=== PATIENT | male | born 1995 | race African-American/Black ===

== ENCOUNTER 2024-01-24 22:49 | Inpatient (IN) | payer OTHER, SELFPAY ==
[2024-01-24 17:39] VITALS: BP 141/93
--- NOTE | 2024-01-24 18:07 | EDRN ---
Gaston Rodriguez [employer] in to see pt.
--- NOTE | 2024-01-24 18:26 | EDRN ---
Gaston Guo PA in room w/pt at this time.
--- NOTE | 2024-01-24 18:32 | ED.GENMED ---
History of Present Illness
General
Chief Complaint: Cold/Flu/URI Symptoms
Time Seen by Provider: 01/24/24 17:48
Travel History
Have you had any contact with someone who has COVID-19?: No
Do you have any symptoms of coronavirus? Fever > 100 degrees, chills, cough, shortness of breath, sore throat, loss of taste or smell, muscle aches, or headache?: No
History of Present Illness
History of Present Illness:
28-year-old otherwise healthy male presents the emergency department for evaluation of sore throat and fever for the past 5 days. Has had progressive worsening throat pain and dysphagia. Voice became muffled yesterday. Having a hard time
swallowing, is able to tolerate his secretions currently. No chest pain or coughing. No nausea or vomiting.
Review of Systems
Review of Systems
Allergies reviewed?: Yes
All Other Systems: ROS reviewed and negative except as documented in HPI and ROS
Phy Exam
Physical Exam
Physical Exam:
GEN: Well appearing, NAD, WDWN
HEENT: Oral mucosa moist, 4+ tonsillar hypertrophy with erythema, no exudate, uvula midline however displaced anteriorly, unable to visualize posterior oropharynx. Positive bilateral cervical adenopathy
Cardiac: Regular rate
Lung: No respiratory distress, no tachypnea
MSK: No gross deformity or injuries
Skin: Good color, no pallor or jaundice, no rashes
Neuro: AO x3, moves all extremities freely
Psych: Calm, cooperative
Course
Orders/Labs/Results
Orders:
Orders
01/24/24 18:29
Dexamethasone Sod Phosphate [Decadron] 6 mg IV NOW STA
Ketorolac [Toradol] 15 mg IV NOW STA
01/24/24 18:57
Basic Metabolic Panel Urgent
Complete Blood Count/With Diff Urgent
Monotest Urgent
Rapid Strep Group A Urgent
EDIS Source: Throat/Pharynx
Specimen Description:
Date Specimen was Collected: 01/24/24
Time Specimen was Collected: 18:45
01/24/24 19:27
CT Neck With Iv Contrast Urgent
Comment:
Reason For Exam: throat swelling suspected parapharyngeal abscess
01/24/24 21:47
Ampicillin/Sulbactam 3 G [Unasyn] 3 gm 0.9% Sodium Chloride 100 ml [Nss] 100 ml IV NOW
01/24/24 22:27
Admit/Transfer Patient As Directed
Co-Sign Provider:
Level of Care: Inpatient admission
Assign to:: Medical/Surgical
Physician / Group: dr Velasquez
Diagnosis: biltateral tonsillar abscesses
Reason for Hospitalization: steroids, antibiotics, pain control
Expected length of stay greater than two midnights?: Yes
ELOS- Estimated Length of Stay in days: 3
I certify the patient meets the requirements for IP care: Yes
01/24/24 22:30
Code Status As Directed
Resuscitation Status: Full Code
01/24/24 22:45
HYDROmorphone [Dilaudid] 0.5 mg IV NOW STA
Abnormal Lab Results
01/24/24
18:57
WBC 12.0 H 10^3/uL
(4.8-10.8)
Absolute Neuts (auto) 8.5 H 10^3/uL
(1.4-6.5)
Absolute Monos (auto) 1.9 H 10^3/uL
(0.1-0.6)
Lymphocytes % 12.1 L %
(20.5-51.1)
Monocytes % 16.1 H %
(1.7-9.3)
Glucose 100 H mg/dl
(70-99)
01/24/24 18:57
01/24/24 18:57
Vital Signs
Initial and Last Documented VS:
Initial Vital Signs
Temp Pulse Resp BP Pulse Ox
99.7 F 100 18 141/93 96
01/24/24 17:39 01/24/24 17:39 01/24/24 17:39 01/24/24 17:39 01/24/24 17:39
Last Documented Vital Signs
Temp Pulse Resp BP Pulse Ox
99.5 F 80 16 119/73 98
01/24/24 22:53 01/24/24 22:53 01/24/24 22:53 01/24/24 22:53 01/24/24 22:53
MDM/Problems Addressed
MDM/Problems Addressed:
Due to the persistence of her voice despite improved symptoms of Toradol a CT was obtained showing bilateral tonsillar abscesses. Case was discussed with ENT, will admit to the ENT service on IV antibiotics and steroids
*Critical Care Note
Total Time (30-74mins, 75-104mins- exclusive of procedures): Not Applicable
ED Attending Note
-
Portions of this chart may have been created with voice recognition software.� Occasional wrong word or��sound alike� substitutions may have occurred due to the inherent limitations of voice recognition software.
Discharge Plan
Departure
Patient Disposition: Admit
Date of Disposition: 01/24/24
Time of Disposition: 21:42
Admit to: Med/Surg
Presentation/result/management discussed w/ accepting MD/DO: Asha
Discharge Problem:
Acute tonsillitis, Tonsillar abscess
Interventions
Interventions:
*Risk Screen - Suicide Last Done: 01/24/24 19:37
*General Assessment Last Done: 01/24/24 17:39
*Neglect/Abuse Screening Last Done: 01/24/24 19:37
*ED COVID-19 Vaccine History Last Done: 01/24/24 17:39
ED- Pulmonary Assessment Last Done: 01/24/24 19:37
[2024-01-24] MEDS: DECADRON 6 MG IV (19:02)
[2024-01-24 19:03] LABS: % Basophils 0.3 % (0-2); % Eosinophils 0.5 % (0-6); % Immature Granulocytes 0.3 % (0-0.5); % Lymphocytes 12.1 % (20.5-51.1); % Monocytes 16.1 % (1.7-9.3); % Neutrophils 70.7 % (42.2-75.2); Absolute Eosinophils 0.1 10^3/uL (0-0.7); Absolute Lymphocytes 1.5 10^3/uL (1.2-3.4); Absolute Monocytes 1.9 10^3/uL (0.1-0.6); Absolute Neutrophils 8.5 10^3/uL (1.4-6.5); Hematocrit 45.5 % (39.0-52.0); Hemoglobin 15.6 g/dL (13.0-18.0); Mean Corp Hgb Conc. 34.3 g/dL (33.0-37.0); Mean Corpuscular Volume 84.6 fL (80.0-94.0); Mean Platelet Volume 9.7 fL (7.4-10.4); Nucleated Red Blood Cells % 0 % (-); Platelet Count 246 10^3/uL (130-400); Red Blood Cell Count 5.38 10^6/uL (4.70-6.10); Red Cell Dist. Width 12.4 % (11.5-14.5)
[2024-01-24] MEDS: TORADOL 15 MG IV (19:03)
[2024-01-24 19:20] LABS: Monotest Negative (Negative)
[2024-01-24 19:37] VITALS: BP 133/84
[2024-01-24 19:37] LABS: Blood Urea Nitrogen 15 mg/dl (9-20); Calcium 9.8 mg/dl (8.4-10.2); Carbon Dioxide 27 mmol/L (22-30); Chloride 99 mmol/L (98-107); Glucose 100 mg/dl (70-99); Potassium 4.2 mmol/L (3.5-5.1); Sodium 136 mmol/L (135-145); eGFR > 60.00
--- NOTE | 2024-01-24 21:46 | EDRN ---
Called pharmacy for slick
[2024-01-24] MEDS: UNASYN IV (22:03)
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
[2024-01-24 22:53] VITALS: BP 119/73
[2024-01-24] MEDS: DILAUDID 0.5 MG IV (22:53)
--- NOTE | 2024-01-25 00:30 | PTCARENOTE ---
Pt arrived to floor via stretcher from the ED. Pt ambulatory to room without difficulty. Assessment WNL except for throat swelling/ discomfort. pt reports pain at tolerable level at this time. IVF infusing as ordered via left AC int. Pt tolerating
ice chips without difficulty. Denies SOB. POX 96% on RA. Suction set up at bedside. at bedside. Will continue to monitor.
[2024-01-25 00:42] VITALS: BP 156/85
[2024-01-25 00:43] VITALS: BMI 32.5
[2024-01-25] MEDS: NSS 1000 IV ×2 (01:21→14:28)
[2024-01-25] MEDS: DECADRON 6 MG IV ×3 (01:21→20:07)
[2024-01-25] MEDS: NICODERM TRANSDERMAL 21 MG TRANSDERM ×2 (01:27→09:59)
[2024-01-25] MEDS: UNASYN IV ×4 (04:34→21:45)
[2024-01-25 05:04] LABS: % Basophils 0.2 % (0-2); % Immature Granulocytes 0.7 % (0-0.5); % Lymphocytes 6.9 % (20.5-51.1); % Monocytes 3.9 % (1.7-9.3); % Neutrophils 88.3 % (42.2-75.2); Absolute Immature Granulocytes 0.1 10^3/uL (0-0.05); Absolute Lymphocytes 1.1 10^3/uL (1.2-3.4); Absolute Monocytes 0.6 10^3/uL (0.1-0.6); Absolute Neutrophils 13.4 10^3/uL (1.4-6.5); Hematocrit 42.3 % (39.0-52.0); Hemoglobin 14.6 g/dL (13.0-18.0); Mean Corp Hgb Conc. 34.5 g/dL (33.0-37.0); Mean Corpuscular Volume 83.9 fL (80.0-94.0); Mean Platelet Volume 10.1 fL (7.4-10.4); Nucleated Red Blood Cells % 0 % (-); Platelet Count 246 10^3/uL (130-400); Red Blood Cell Count 5.04 10^6/uL (4.70-6.10); Red Cell Dist. Width 12.3 % (11.5-14.5); White Blood Cell Count 15.2 10^3/uL (4.8-10.8)
[2024-01-25 05:28] LABS: ALT (SGPT) 26 U/L (0-50); AST (SGOT) 23 U/L (17-59); Albumin 4.5 g/dl (3.5-5.0); Alkaline Phosphatase 115 U/L (38-126); Blood Urea Nitrogen 21 mg/dl (9-20); Calcium 10.1 mg/dl (8.4-10.2); Carbon Dioxide 26 mmol/L (22-30); Chloride 99 mmol/L (98-107); Estimated Creatinine Clearance > 125 ml/min; Glucose 122 mg/dl (70-99); Potassium 4.5 mmol/L (3.5-5.1); Sodium 137 mmol/L (135-145); Total Bilirubin 0.9 mg/dl (0.2-1.3); Total Protein 7.6 g/dl (6.3-8.2); eGFR > 60.00
--- NOTE | 2024-01-25 05:52 | PTCARENOTE ---
Pt walking frequently in room when not sleeping. spent the night. Pt denies any need for pain medication overnight. Breathing remains stable. IVF infusing as ordered. Will continue to monitor.
[2024-01-25 07:00] VITALS: BP 130/77
--- NOTE | 2024-01-25 08:19 | W.PN.ENT ---
Today's Communication
-
acute tonsillitis, possibly mono despite negative monospot, small ill-defined hypoattenuated areas in tonsils/peritonsillar spaces, much better with abx and steroids.
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
nasal obst from deviated septum, allergies
advance diet
cont unasyn, decadron
if continues to improve, possible dc tomorrow
flonase for 1 mo; if no change, could have septoplasty
will need Sleep Study at some point
Impression / Plan
-
acute tonsillitis, possibly mono despite negative monospot, small ill-defined hypoattenuated areas in tonsils/peritonsillar spaces, much better with abx and steroids.
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
nasal obst from deviated septum, allergies
advance diet
cont unasyn, decadron
if continues to improve, possible dc tomorrow
flonase for 1 mo; if no change, could have septoplasty
will need Sleep Study at some point
Subjective Data
-
odynophagia greatly reduced, down to 5/10 today, tolerating ice chips.
some dyspnea when sleeping, none now.
Had sore throat once before 2 years ago.
Also has constant nasal obst, allergies, rx'ed with leo.
possible KHLOE per .
Objective Data
-
Vital Signs
Temp Pulse Resp BP Pulse Ox
97.4 F 78 18 130/77 92
01/25/24 07:00 01/25/24 07:00 01/25/24 07:00 01/25/24 07:00 01/25/24 07:00
Intake & Output
01/24/24 01/25/24 01/26/24
06:59 06:59 06:59
Intake:
IV fluids (Total) 400 / 400
IV piggybacks 120 / 120
Lab Results
01/25/24 04:45
01/25/24 04:45
Calcium 10.1 mg/dl (8.4-10.2) 01/25/24 04:45
Total Bilirubin 0.9 mg/dl (0.2-1.3) 01/25/24 04:45
AST 23 U/L (17-59) 01/25/24 04:45
ALT 26 U/L (0-50) 01/25/24 04:45
Alkaline Phosphatase 115 U/L (38-126) 01/25/24 04:45
Physical Exam
-
A&O
muffled voice, no hoarseness, stridor, drool.
nose with severe L DNS
OC/OP 3-4+ tonsils, mild erythema, no bulging of soft palate, uvula midline
neck mild diffuse tenderness, no masses, no fluctuance
98.5
WBC 12.0 to 15.2 with elevated monos.
monospot and rapid strep negative
CT reviewed, ill-defined hypodense areas in tonsils/peritonsillar spaces, small adenoids
--- NOTE | 2024-01-25 10:50 | CM ---
Patient seen bedside, initial assessment completed. Patient reports he resides with his fiance in a multiple story home. Patient is independent with ADLs/IADLS, denies DME in home, denies history of VN or SNF. Patient reports he does have a PCP who
he recently started seeing, unsure of name. Patient confirms pharmacy [facility] [place]. Patient inquiring if he will be having surgery, TT sent to patients nurse. CM will continue to follow for discharge planning needs.
Plan; home no needs anticipated.
[2024-01-25 15:00] VITALS: BP 124/78
--- NOTE | 2024-01-25 17:39 | PTCARENOTE ---
[facility]. Pt instructed on plan of care. Pt verbalized understanding of instructions. Verbal report called to [facility] RN. Pt transported via w/c.
[2024-01-25 17:46] VITALS: BP 167/62
[2024-01-25 23:00] VITALS: BP 151/66
[2024-01-26] MEDS: UNASYN IV (03:05)
[2024-01-26] MEDS: NSS 1000 IV (03:05)
[2024-01-26 07:55] VITALS: BP 151/88
--- NOTE | 2024-01-26 08:19 | W.PN.ENT ---
Today's Communication
-
acute tonsillitis, possibly mono despite negative monospot, small ill-defined hypoattenuated areas in tonsils/peritonsillar spaces, dramatically better with abx and steroids.
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
nasal obst from deviated septum, allergies
dc to home
flonase for 1 mo; if no change, could have septoplasty
will need Sleep Study at some point
Impression / Plan
-
acute tonsillitis, possibly mono despite negative monospot, small ill-defined hypoattenuated areas in tonsils/peritonsillar spaces, dramatically better with abx and steroids.
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
nasal obst from deviated septum, allergies
dc to home
flonase for 1 mo; if no change, could have septoplasty
will need Sleep Study at some point
Subjective Data
-
feels completely better, pain 0/10, +po's, no dyspnea.
Objective Data
-
Vital Signs
Temp Pulse Resp BP Pulse Ox
97.8 F 66 20 151/66 95
01/25/24 23:00 01/25/24 23:00 01/25/24 23:00 01/25/24 23:00 01/25/24 23:00
Intake & Output
01/25/24 01/26/24 01/27/24
06:59 06:59 06:59
Intake:
IV fluids (Total) 400 / 400 960 / 960
IV piggybacks 120 / 120 240 / 240
Other:
Number of approximated MODERATE 2
amounts of urine
Lab Results
01/25/24 04:45
Calcium 10.1 mg/dl (8.4-10.2) 01/25/24 04:45
Total Bilirubin 0.9 mg/dl (0.2-1.3) 01/25/24 04:45
AST 23 U/L (17-59) 01/25/24 04:45
ALT 26 U/L (0-50) 01/25/24 04:45
Alkaline Phosphatase 115 U/L (38-126) 01/25/24 04:45
Physical Exam
-
nose L DNS
OC/OP 4+ tonsils, minimal erythema, no bulging of palate, uvula midline
neck no tenderness or swelling
afeb 95% on RA
[2024-01-26] MEDS: DECADRON 6 MG IV (08:20)
[2024-01-26] MEDS: NICODERM TRANSDERMAL TRANSDERM (08:25)
[2024-01-26 08:38] LABS: % Basophils 0.1 % (0-2); % Immature Granulocytes 0.4 % (0-0.5); % Lymphocytes 12.7 % (20.5-51.1); % Monocytes 10.6 % (1.7-9.3); % Neutrophils 76.2 % (42.2-75.2); Absolute Immature Granulocytes 0.1 10^3/uL (0-0.05); Absolute Lymphocytes 1.8 10^3/uL (1.2-3.4); Absolute Monocytes 1.5 10^3/uL (0.1-0.6); Absolute Neutrophils 11.1 10^3/uL (1.4-6.5); Hematocrit 41.4 % (39.0-52.0); Hemoglobin 13.9 g/dL (13.0-18.0); Mean Corp Hgb Conc. 33.6 g/dL (33.0-37.0); Mean Corpuscular Hgb 28.7 pg (27.0-31.0); Mean Corpuscular Volume 85.4 fL (80.0-94.0); Mean Platelet Volume 10.8 fL (7.4-10.4); Nucleated Red Blood Cells % 0 % (-); Platelet Count 250 10^3/uL (130-400); Red Blood Cell Count 4.85 10^6/uL (4.70-6.10); Red Cell Dist. Width 12.1 % (11.5-14.5); White Blood Cell Count 14.5 10^3/uL (4.8-10.8)
--- NOTE | 2024-01-26 09:43 | CM ---
CM following re: d/c planning
Chart reviewed
Pt is medically stable for d/c
Pt has no needs identified
Pt to f/u with ENT within 1month
PLAN; d/c home no needs
--- NOTE | 2024-01-26 13:37 | W.DS.TRANS ---
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
-
Discharge Instructions:
Discharge Diagnosis/Procedures Acute tonsillitis
Diet No restrictions
Activity No restrictions
Driving Restrictions As prior to admission
Bathing Restrictions None
Instructions:
Stand-Alone Forms:
Changes to Home Medications: No
Discharge Medications:
DC Medications w/original date entered in [employer]
amoxicillin 500 mg-potassium clavulanate 125 mg tablet (Augmentin) 1 tab PO TID 8 days #24 tabs 01/26/24
prednisone 10 mg tablet 10 mg PO DIRECTED #21 tabs 01/26/24
Home Medication Changes
Pending Results: No
Total time spent discharging patient (in min): 30
== END 2024-01-26 09:31 | disposition home or self-care (01) | DRG 153 ==
LOC: 4 EAST ACU 22:49
PROVIDERS: Nurse Practitioner Family; Physician Assistant; ADMITTING PHYSICIAN Otolaryngology; EMERGENCY PHYSICIAN Emergency Medicine
DX: J03.90 Acute tonsillitis, unspecified (principal); F17.210 Nicotine dependence, cigarettes, uncomplicated; G47.33 Obstructive sleep apnea (adult) (pediatric); J34.2 Deviated nasal septum; J30.9 Allergic rhinitis, unspecified
CPT/HCPCS: 70491; 80048; 80053; 85025; 86308; 87070; 87880; 96365; 96375; 99285; Q9967